=== PATIENT | female | born 1995 | race Caucasian/White ===

== ENCOUNTER 2021-04-26 21:35 | Emergency (ER) | payer OTHER, SELFPAY ==
[2021-04-26 21:38] VITALS: BP 139/82; PULSE 95; RESP 20; TEMP 36.7; O2SAT 96
--- NOTE | 2021-04-26 21:43 | DI.RAD.S_ITS ---
PROCEDURE: XR ELBOW LT MIN 3V INDICATIONS: fall TECHNIQUE: 3 views of the elbow were acquired. COMPARISON: None. FINDINGS: There is a comminuted nondisplaced fracture of the radial head with intra-articular extension of fracture planes. Moderate-sized elbow joint effusion. IMPRESSION: Comminuted radial head fracture with intra-articular extension. Dictated by: Martin Hernandez M.D. on 04/26/2021 at 22:18 Approved by: Martin Hernandez M.D. on 04/26/2021 at 22:19
--- NOTE | 2021-04-26 22:04 | ED_ITS ---
HPI - Extremity Injury (Upper) General Chief Complaint: Extremity Injury, Upper Stated Complaint: Left arm injury today Time Seen by Provider: 04/26/21 21:40 Source: patient Mode of arrival: Ambulatory History of Present Illness HPI narrative: 26-year-old female nonsmoker with noncontributory history presents with a chief complaint of gradually worsening pain in her left elbow after a snowboarding accident earlier today. She states she was traveling at a relatively slow speed which he caught an edge and landed on her elbow on the hard snow. She did not suffer any head neck or back pain. She denies any shoulder or wrist pain. She did think anything of it at that time and actually completed her day while snowboarding but as the evening wore on she developed increasing pain with any range of motion of her elbow. She denies any history of prior elbow injury. She has no other symptoms and is otherwise well and free of complaint Review of Systems Review of Systems Narrative: GENERAL: Denies chills, fatigue, malaise, fever, sweats. HEENT: Denies sinus pain, ear pain, sore throat, difficulty swallowing, dizziness. RESPIRATORY: Denies dyspnea, cough, wheezing, hemoptysis, sputum. CARDIOVASCULAR: Denies chest pain, palpitations, orthopnea, edema, GASTROINTESTINAL: Denies nausea, vomiting, abdominal pain, diarrhea, consti pation, melena. : Denies dysuria, frequency, incontinence, hematuria, urinary retention. MUSCULOSKELETAL: See HPI SKIN: Denies rash, skin lesions, or other NEUROLOGIC: Denies weakness, headache, numbness, change in speech, confusion, seizures, incoordination. PSYCHIATRIC: No concerning psychosocial issues. 12 point review of systems is negative except for those stated above Exam Narrative Exam Narrative: GEN: AOx3 and in mild distress EYES: Pupils are equal, round, and reactive to light and accommodation. Extraoccular muscles are intact bilaterally. There is no subconjunctival hemorrhage or exudate. CHEST: Lungs are clear to auscultation bilaterally and free of wheezes, rales, or rhonchi. Heart rate is regular rhythm, there are no murmurs, clicks, rubs, or gallops. There is no chest wall tenderness. ABD: Abdomen is soft and nontender. There is no guarding or rebound. Bowel soun ds are normal in all 4 quadrants. There is no mass or organomegaly. EXT: Full but painful range of motion at left elbow with minimal swelling, most tenderness overlying radial head. No shoulder or wrist pain. This is isolated and neurovascularly intact SKIN: Warm, pink, and dry. No erythema or rash Initial Vital Signs Initial Vital Signs: Vital Signs Temperature 98.0 F 04/26/21 21:38 Pulse Rate 95 H 04/26/21 21:38 Respiratory Rate 20 04/26/21 21:38 Blood Pressure 139/82 04/26/21 21:38 Pulse Oximetry 96 04/26/21 21:38 Procedures Orthopedic Splinting/Casting Injury #1: Side: left Upper Extremity Injury Location: elbow Upper Extremity Immobilizer: sling/shoulder immobilizer Post splinting neuro exam: intact Post splinting vascular exam: intact Placed by: Nursing Course Orders Ordered: ED Orders 04/26/21 21:43 XR elbow LT min 3V Stat Vital Signs Vital signs: Vital Signs - 8 hr 04/26/21 21:38 Temperature 98.0 F Pulse Rate 95 H Respiratory Rate 20 Blood Pressure 139/82 Pulse Oximetry 96 MDM - Extremity Injury (Upper) Imaging Data Extremity x-ray #1: Attestation: I personally reviewed and interpreted this imaging study as follows: My Impression: Nondisplaced fracture of radial head Radiologist's Impression: [place] [address] XRay Report Signed Patient: Sushil Cobian MR#: [id number] : 1995 Acct:[id number] Age/Sex: 26 / F Date of Service: 04/26/21 Loc: ED Accession Number: [id number] ?? Procedure: XR elbow LT min 3V Ordering Provider: Jeison Jay D.O. PROCEDURE:? XR ELBOW LT MIN 3V ? INDICATIONS:? fall ? TECHNIQUE:? 3 views of the elbow were acquired.? ? COMPARISON:? None. ? FINDINGS:? ? There is a comminuted nondisplaced fracture of the radial head with intra- articular extension of fracture planes.? Moderate-sized elbow joint effusion. ? ? IMPRESSION:? Comminuted radial head fracture with intra-articular extension. Discharge Plan Departure Patient Disposition: Home Clinical Impression: Closed fracture of radial head Instructions: DI for Elbow Fracture Activity Restrictions/Additional Instructions: *You have been diagnosed with [left radial head fracture] *What to do: *Please continue to take your regular medications as directed. [ ] New medication prescriptions sent to your pharmacy: [ ] [ ] New medication written as a paper prescription [x] Tylenol and occasional Motrin for pain *Please follow up with [Donna] of [facility] in 2-3 days, call for an appointment. Let them know you were seen in the Emergency Department and that we ask that you be seen in follow up. We will electronically transmit a record of today's note if your PCP is in our system *Return to Emergency Department if you should have any new, worsening or concerning symptoms, such as [worsening pain, significant swelling, cold extremities, numbness, tingling, weakness or other bothersome symptoms Referrals: Jerel Thompson MD [Physician] -
== END 2021-04-26 22:12 | disposition home or self-care (01) ==
PROVIDERS: Emergency Provider Emergency Medicine
DX: S52.125A Nondisplaced fracture of head of left radius, initial encounter for closed fracture (principal); W18.30XA Fall on same level, unspecified, initial encounter; Y93.23 Activity, snow (alpine) (downhill) skiing, snowboarding, sledding, tobogganing and snow tubing
CPT/HCPCS: 73080; 99282; 99283